=== PATIENT | male | born 1985 | race Asian ===

== ENCOUNTER 2019-07-06 02:51 | Inpatient (IN) | payer BC, MEDICAID ==
[~2019-07-06] VITALS: Ht 167.6 cm; Wt 62.2 kg
[2019-07-06 04:44] LABS: BASOPHILS % (AUTO) 0.2 % (0.0-2.0); EOSINOPHILS % (AUTO) 1.6 % (1.0-6.0); HEMATOCRIT 42.2 % (41-53); HEMOGLOBIN 13.8 g/dL (13.5-17.5); LYMPHOCYTES # (AUTO) 1.3 K/uL (1.0-4.8); LYMPHOCYTES % (AUTO) 9.4 % (22.0-44.0); MEAN CORPUSCULAR HEMOGLOBIN 31.1 pg (26.0-34.0); MEAN CORPUSCULAR HGB CONC 32.6 G/dL (31.0-37.0); MEAN CORPUSCULAR VOLUME 95 fL (80-100); MONOCYTES % (AUTO) 7.2 % (2.0-9.0); NEUTROPHILS # (AUTO) 11.1 K/uL (1.8-7.7); NEUTROPHILS % (AUTO) 81.6 % (40.0-70.0); PLATELET COUNT (AUTO) 313 K/uL (150-450); RED BLOOD CELL COUNT(AUTO) 4.43 MIL/uL (4.50-5.90); RED CELL DISTRIBUTION WIDTH 12.1 % (11.5-14.5)
[2019-07-06 04:58] LABS: AMPHET/METH SCREEN,URINE POSITIVE (NEGATIVE); BARBITURATE SCREEN, URINE NEGATIVE (NEGATIVE); BENZODIAZEPINES SCREEN,URINE POSITIVE (NEGATIVE); CANNABINOID SCREEN,URINE NEGATIVE (NEGATIVE); COCAINE SCREEN,URINE NEGATIVE (NEGATIVE); METHADONE SCREEN, URINE NEGATIVE (NEGATIVE); OPIATE SCREEN,URINE NEGATIVE (NEGATIVE)
[2019-07-06 04:58] LABS: ANION GAP 9 mmol/L (8-16); CALCIUM, TOTAL 8.6 mg/dL (8.8-10.5); CARBON DIOXIDE 28 mmol/L (22-29); CHLORIDE 106 mmol/L (98-107); CREATININE 1.37 mg/dL (0.60-1.30); GLOMERULAR FILTR. RATE CALC 59 mL/min (>60); GLUCOSE,RANDOM 96 mg/dL (70-110); POTASSIUM 3.4 mmol/L (3.5-5.1); SODIUM SERUM 143 mmol/L (136-145); UREA NITROGEN, BLOOD 10 mg/dL (7-18)
[2019-07-06 04:59] LABS: PHENCYCLIDINE SCREEN,URINE NEGATIVE (NEGATIVE)
[2019-07-06 05:04] LABS: ALANINE AMINOTRANSFERASE 11 U/L (12-78); ALBUMIN 4.1 g/dL (3.4-5.0); ALKALINE PHOSPHATASE 69 U/L (46-116); ASPARTATE AMINOTRANSFERASE 19 U/L (15-37); BILIRUBIN,TOTAL 0.5 mg/dL (0.1-1.0); TOTAL PROTEIN, SERUM 7.4 g/dL (6.4-8.2)
[2019-07-06] MEDS ORDERED: POTASSIUM CHLORIDE 10% 40 MEQ/30 ML LIQUID UDCUP PO ONE (05:15)
[2019-07-06] MEDS ORDERED: HALOPERIDOL 2 MG TABLET PO ONE (09:45)
[2019-07-06] MEDS ORDERED: HALOPERIDOL 1 MG TABLET PO ONE (09:45)
[2019-07-06] MEDS ORDERED: HALOPERIDOL 5 MG TABLET PO PRN (10:30)
[2019-07-06] MEDS ORDERED: LORazepam 2 MG TABLET PO PRN (10:30)
[2019-07-06] MEDS ORDERED: ZOLPIDEM TARTRATE 10 MG TABLET PO PRN (10:30)
[2019-07-06 14:28] VITALS: BP 104/70
[2019-07-06 16:22] VITALS: BP 106/69
[2019-07-06] MEDS: OLANZapine 5 MG RAPDIS TABLET PO SCH (17:14)
[2019-07-07 01:11] VITALS: BP 103/64
[2019-07-07] MEDS: OLANZapine 5 MG RAPDIS TABLET PO SCH ×2 (08:35→16:15)
[2019-07-07 08:50] VITALS: BP 104/56
[2019-07-07 16:11] VITALS: BP 108/60
[2019-07-08 00:21] VITALS: BP 134/83
[2019-07-08 08:05] VITALS: BP 111/66
[2019-07-08] MEDS: OLANZapine 5 MG RAPDIS TABLET PO SCH ×2 (08:14→16:59)
[2019-07-08 16:38] VITALS: BP 101/62
[2019-07-09 02:39] VITALS: BP 113/74
[2019-07-09] MEDS: OLANZapine 5 MG RAPDIS TABLET PO SCH (08:16)
[2019-07-09 08:28] VITALS: BP 106/66
[2019-07-09] MEDS ORDERED: OLAN5TAB40 PO (10:58)
== END 2019-07-09 13:45 | disposition home or self-care (01) | DRG 885 ==
LOC: EMS 02:52 → B2S 11:51 → UNDOADMIN 11:51 → B2S 07-07 18:59
PROVIDERS: ADMIT Psychiatry & Neurology Psychiatry; ATTEND Psychiatry & Neurology Psychiatry
DX: F20.0 Paranoid schizophrenia (principal); F15.259 Other stimulant dependence with stimulant-induced psychotic disorder, unspecified; D72.829 Elevated white blood cell count, unspecified; F17.200 Nicotine dependence, unspecified, uncomplicated; E87.6 Hypokalemia; F41.9 Anxiety disorder, unspecified; Z59.0 Homelessness
CPT/HCPCS: 84132; G0480